=== PATIENT | male | born 1975 | race Caucasian/White ===

== ENCOUNTER 2019-07-19 08:50 | Day surgery (SDC) | payer OTHER ==
[~2019-07-19] VITALS: Ht 188 cm; Wt 88.5 kg
[~2019-07-19 08:50] MED LIST: CELEXA10 MG PO; COREG25 MG PO; LASIX 80 MG TAB80 MG PO; PHOSLO667 MG PO; PROCARDIA XL90 MG PO; PROGRAF1 MG PO; ZAROXOLYN 5MG TA5 MG PO
[2019-07-19 09:51] LABS: HEMATOCRIT 30.3 % (42.0-52.0); HEMOGLOBIN 10.1 gm/dL (14.0-18.0); MCH 32.9 pg (26.0-34.0); MCHC 33.4 g/dL (28.0-37.0); MCV 98.5 fL (80.0-100.0); RBC 3.07 mil/uL (4.50-6.00); RDW 14.1 % (10.5-14.5); WBC 8.5 thou/uL (4.0-11.0)
[2019-07-19 09:53] VITALS: BP 153/80
[2019-07-19 09:57] LABS: CALCIUM 9.3 mg/dL (8.5-10.1); POTASSIUM 4.8 mmol/L (3.5-5.1)
[2019-07-19 10:04] LABS: ALBUMIN 3.5 g/dL (3.4-5.0); DIRECT BILIRUBIN 0.1 mg/dL (<0.1-0.3); TOTAL BILIRUBIN 0.4 mg/dL (<0.1-1.0); TOTAL PROTEIN 6.6 g/dL (6.4-8.2)
--- NOTE | 2019-07-19 17:05 | EKG ---
[address] [address] ELECTROCARDIOGRAM REPORT Name: JHONNY KOCH Room #: 150-4 [facility]#: [id number] Admission: 07/19/19 Attend Phys: Lobo Milian MD Discharge: Date of : 71 Report #: [id number] THIS REPORT FOR: //name// [facility] Test Date: 2019-07-19 Test Time: 09:33:03 Pat Name: JHONNY KOCH Department: Room: Gender: M Mobile Equipment Operator: liyah : 1975 Requested By: Lobo Milian Order Number: [id number] MD: Rolo Rosario Measurements Intervals [place] Rate: 74 P: 65 WI: 152 QRS: 41 QRSD: 91 T: 32 QT: 374 QTc: 415 Interpretive Statements Sinus rhythm Normal tracing No previous ECG available for comparison Electronically Signed On 07-19-2019 17:05:13 CDT by Rolo Rosario [email or web address] <ELECTRONICALLY SIGNED> By: Rolo Rosario MD, [facility] 07/19/19 1705 0933 2 Rolo Rosario MD, FACC /EPI
[2019-07-19 18:42] VITALS: BP 143/84
--- NOTE | 2019-07-19 19:32 | NUR ---
43 YO MALE TRANSFERED TO 426 FROM PACU. A&OX4, IV INTACT IN L HAND. FISTULA TO R ARM. O2 AT 2 L PER NC. LIZZIE ARE INTACT ON R SIDE OF HEAD WITH YING DRAIN. TOP OF HEAD HAS DRIED BLOOD FROM LIZZIE OPEN TO AIR. R SIDE EYE LID IS ACTIVELY BLEEDING, IT WAS GENTLY TOUCHED TO STOP BLOOD ENTERING THE EYE. PT WAS EATING DINNER AFTER ARRIVED IN ROOM 1810. S/O AT THE BEDSIDE.
[2019-07-19 20:18] VITALS: BP 135/83
--- NOTE | 2019-07-20 00:56 | NUR ---
ASSESSMENT COMPLETED.PT'S INCISION IN HIS R LID DRAINING BLOOD,WIPE OFF WITH GAUZE,STERI STRIPS INTACT.ABX OINTMENT APPLIED TO BRYCE EYELIDS. R UPPER ARM FISTULA POSITIVE FOR THRILL AND BRUIT.PT DENIED PAIN SO FAR.PT ON O2 AT 2L/NC.SCD'S ON HIS BRYCE LOWER EXT.IV ABX AND IVF INFUSING.SIG OTHER AT BEDSIDE.CALL LIGHT WITHIN REACH.
[2019-07-20 03:30] VITALS: BP 151/93
[2019-07-20 05:33] LABS: HEMATOCRIT 25.2 % (42.0-52.0); HEMOGLOBIN 8.3 gm/dL (14.0-18.0); MCH 32.9 pg (26.0-34.0); MCV 99.8 fL (80.0-100.0); RBC 2.52 mil/uL (4.50-6.00); RDW 14.3 % (10.5-14.5); WBC 7.6 thou/uL (4.0-11.0)
[2019-07-20 05:38] LABS: CALCIUM 9.1 mg/dL (8.5-10.1); POTASSIUM 5.1 mmol/L (3.5-5.1)
[2019-07-20 07:30] VITALS: BP 169/89
[2019-07-20] MEDS ORDERED: PROMS25 WY RECTAL (11:45)
--- NOTE | 2019-07-20 11:45 | O ---
[facility] [place] [address] [place] [address] OPERATIVE REPORT Name: JHONNY KOCH Room #: 426-P [facility]..#: [id number] Admission: 07/19/19 Attend Phys: Lobo Milian MD Discharge: Date of : 71 Report #: [id number] THIS REPORT FOR: //name// CC: GARRETT Milian Physician staff DATE OF SERVICE: 07/19/2019 SURGEON: Dr. Lobo Milian. MANAGER MECHANICAL MAINTENANCE: Dr. Arthur Valdez. ANESTHESIA: General endotracheal. Note, Dr. Valdez will dictate his portion as primary surgeon as a separate dictation. PREOPERTIVE DIAGNOSIS: 1. Aggresive squamous cell carcinoma right forehead, brow, and orbit, 6cm. 2. Lesion right postauricular neck 2.5cm, rule out squamous cell carcinoma. 3. N0 Neck 4. Chronic immunosuppresion 5. Chronic kidney disease on dialysis. POSTOPERATIVE DIAGNOSIS: KELVIN PROCEDURES: 1. Radical excision squamous cell carcinoma right brow, forehead, orbit, 6cm. 2. Wide local excision, 3 cm lesion, right neck. 3. Myofacial cervicofacial flap reconstruction right forehead. 4. Sentinal node biosy right parotid. 5. Flap advancement reconstruction right neck. INDICATIONS: The patient is an unfortunate 43-year-old male presenting with a squamous cell carcinoma of the right lateral brow and forehead. He first had presented with a nonhealing ulceration in the right forehead in 09/2018. At that time, he felt this was secondary to sandblasting and foreign body. The patient had undergone a herniorrhaphy and by General Surgery in February. The wound was debrided at that time, but not biopsied. The patient developed swelling in April and saw a plastic surgeon in [place], [place]. Again, with the complaint of foreign body, debridement and biopsy was done showing squamous cell carcinoma. The patient ultimately was referred to Dr. Zacarias and then ultimately [address] [address] OPERATIVE REPORT Name: JHONNY KOCH Room #: 426-P [facility].#: [id number] Admission: 07/19/19 Attend Phys: Lobo Milian MD Discharge: Date of : 71 Report #: [id number] to me for definitive treatment. I had asked him to see Dr. Arthur Valdez, and oculoplastic surgeon, for assistance on this case. By then, the mass had grown and was fluid filled. Aspiration of 12 mL of sanguinous fluid was done in my office on 07/17 with positive for squamous cell carcinoma. Recommendations were made for radical excision of this mass, orbitotomy as necessary, possible orbital exenteration and cervical facial myofascial flap reconstruction. DESCRIPTION OF PROCEDURE: The patient was brought to the operating room and placed supine on the operating table. After adequate general anesthesia was achieved via endotracheal intubation, he was turned 180 degrees on a Camejo headrest with the face up. As a separate part of the procedure, the Xomed nerve integrity monitor was applied to the right face for continuous intraoperative monitoring of the facial nerve. Needle electrodes were placed in the orbicularis dc and orbicularis oculi muscles with ground electrodes in the soft tissue overlying the sternum and contralateral shoulder. Electrode resistance and impedance was measured and found to be acceptable. Threshold and stimulus intensity parameters were set and the patient was monitored for the entirety of the case of about 4 hours in order to locate and protect the facial nerve. He was then prepped and draped in a sterile fashion. The procedure began with excision of the tumor. Dr. Valdez began the procedure with excision of the upper lid margin extending down to the lateral canthus and then up to the lateral brow. The patient had a great deal of oozing going on throughout the case, even though he denies any anticoagulation for his dialysis. Once this was demarcated, I began the excision superiorly beginning on the superior brow extending down through the subcutaneous tissue and orbicularis oculi muscle. This continued laterally, 3 mm margins were taken around the gross erythema of the tumor, which was now a large swollen cystic mass. The dissection then continued down using Harmonic scalpel. The portion of the orbicularis oculi muscle was taken with the specimen. Dissection continued down to the periosteum of the upper brow. Interestingly, this mass seemed confined to the soft tissue and did not seem to invade into the pericranium. Lateral margins appeared clear grossly. The tumor was marked with a silk suture at 12 o'clock and then delivered off the field as specimen. Separate margins were taken on the patient in a clockwise fashion beginning 12-3 o'clock, 3-6 o'clock, etc., back to 12 o'clock of 1-2 mm margins off the patient himself. The deep margin was taken overlying the deep part of the tumor overlying the lateral supraorbital ridge. The supraorbital artery and vein were identified during the dissection, clamped between Ligaclips and divided. The deep margin and lateral margins all returned free of tumor. The patient had exposure of his lateral orbit and in beginnings of an orbitotomy there was no evidence of any extension deep into the lateral orbit. This did not involve the lateral canthal region or [facility] [address] [place] [address] OPERATIVE REPORT Name: JHONNY KOCH Room #: 426-P [facility]#: [id number] Admission: 07/19/19 Attend Phys: Lobo Milian MD Discharge: Date of : 71 Report #: [id number] tendon. Once this excision completed, attention was then turned to reconstruction while waiting for the margins. It was elected to proceed with a myofascial cervical facial rotation flap extending superiorly over the forehead into the hair and extending down along the anterior or along the preauricular sulcus then extending posteriorly into the lateral neck. The posterior limb of the incision in the lateral neck was made to include another lesion in the neck. This lesion was then excised as a fusiform excision taking again 3 mm margins around the gross tumor and dissected down to the subcutaneous tissue, this was again worked with a silk suture superiorly at 12 o'clock delivered off the field as specimen. Wide undermining was then undertaken. A cervicofacial flap was then elevated in a facelift fashion up to the masseter muscle and extending inferiorly in the neck deeply, so this entire flap could be rotated superiorly. Dissection then continued in the superior limb up into the forehead and calvaria and then anteriorly almost to the midline of the forehead. This was then freed from its soft tissue attachments and the flap rotated into the defect. This was able to completely reconstruct the orbital defect with little tension. This did deliver hair-bearing skin up to the forehead. Once this entire flap was rotated, this was sutured in place with a 4-0 Dr. José Miguel baron then reconstructed the upper lid with this flap. This was inset with 4-0 Vicryl and 5-0 nylon on skin. While this was being done, attention was then turned to the sentinel node biopsy. The patient had been preoperatively injected with radiotracer. The gamma probe was used to identify this as a node inferior in the parotid just anterior to the sternocleidomastoid anterior border. Dissection was then made in this fashion. This area was entered. Dissection was made through the parotid until the retromandibular vein was identified just lateral and posterior to this vein was a 1-cm lymph node. This was dissected free. A 10-second count in vivo was 456, ex vivo count on the node was 903 and in the bed after removal, the 10-second count was 16 indicating complete removal of the sentinel node. Hemostasis was assured with bipolar cautery. The parotid was then closed with 3-0 Vicryl. At this point, the postauricular fusiform excision that had been made for removal of the tumor in the postauricular region was then closed advancing this flap superiorly and then closing this with interrupted 4-0 Vicryl deep dermal sutures and 35 wide gisela on skin. The cervicofacial flap had been rotated superiorly and then this area was closed in the preauricular sulcus with interrupted 4-0 Vicryl on deep dermal sutures and then 5-0 nylon on skin. Prior to closure, a 10-[place] Vishnu drain was placed through a separate stab incision, curled into the wound and connected to bulb suction. The drain was sutured in place with 2-0 silk. By then, all margins had been confirmed cleared. The lesion in the neck was a squamous cell carcinoma as well. Final pathology deferred to permanent section. Dr. Valdez continued to work on the right upper lid and elected to reconstruct [address] [address] OPERATIVE REPORT Name: JHONNY KOCH Room #: 426-P [facility] M.R.#: [id number] Admission: 07/19/19 Attend Phys: Lobo Milian MD Discharge: Date of : 71 Report #: [id number] with a full thickness skin graft, which was taken from the opposite upper lid skin. This will be dictated as a separate dictation. The primary surgeon on the above was Dr. Milian. Dr. Valdez assisted in all phases of this and was enrolled to helping inset the flap into the upper lid. Once this was closed, the patient was returned to anesthesia, awakened without difficulty and returned to recovery in good condition. Sponge and needle counts were correct. There were no complications. Final defect measured about 14 x 12 cm in the forehead with reconstruction of this large flap. The patient will be kept overnight for monitoring. He is due to dialyze tomorrow and Nephrology will be consulted. I would ask them to avoid any anticoagulation with dialysis. The patient will be discharged to home once he is doing well and awake and stable with plans to follow with me in 1 week. Written and verbal discharge instructions and emergency precautions have been given to his . DISCHARGE MEDICATIONS: Include clindamycin 300 mg 1 t.i.d. for 10 days, Phenergan suppository 25 mg one q. 4-6 hours p.r.n., hydrocodone/acetaminophen 7.5/325 one to two q. 4-6 hours p.r.n. He is instructed on light activity and a soft diet and instructed on wound precautions. <ELECTRONICALLY SIGNED> By: Lobo Milian MD 07/20/19 1145 170 37 Lobo Milian MD /nt
[2019-07-20] MEDS ORDERED: NORCO 7.5-3251 EACH PO (11:46)
--- NOTE | 2019-07-20 14:14 | NUR ---
PT ADMITTED RELATED TO RT EXC LESION EYE. CM REVIEWED CHART AND SPOKE WITH CARE TEAM. CM MET WITH PT AT BEDSIDE THIS DAY. PT IS A&O X4. CM ROLE INTRODCUED. PT INDICATED HE LIVES IN A HOUSE WITH HIS SIG OTHER WITH NO STEPS. PT INDICATED HE HAD BEEN INDEPDENET WITH GAIT AND ADLS PASTE THINNER PT INDICATED NO DME OR HH HISTORY. PT INDICATED HE GOES FOR DIALYSIS AT [facility] IN [facility]. HE WILL NEED DIALYSIS TUESDAY. CARE TEAM INDICATED WITH PT DC HOME TOMRROW. NO OTHER CM INTERVENTION INDICATED.
[2019-07-20 16:10] VITALS: BP 144/73
--- NOTE | 2019-07-20 18:30 | NUR ---
PT ASSESSED AT START OF SHIFT. PT RT EYELID SKIN GRAFT SWOLLEN W/ SOME SS DRAINAGE. GAUZE PLACED UNDER EYE TO ABSORB DRAINAGE. EYE OINTMENT TO BRYCE EYES TO KEEP SURGICAL SITES MOIST. TEACHING DONE W/ SIG OTHER. RT NECK YING W/ SS DRAINAGE. PT DIALYZED THIS AM AND TOLERATED WELL. PLAN FOR DISCHARGE TOMORROW.
[2019-07-20 20:11] VITALS: BP 156/85
[2019-07-20 23:06] LABS: HEPATITIS B SURFACE AG Negative (Negative)
--- NOTE | 2019-07-21 00:50 | NUR ---
ASSESSMENT COMPLETED.PT'S EYELID WITH MIN BLOODY DRAINAGE.EYE OINTMENT APPLIED ORDERED.YING DRAIN INTACT WITH MIN SEROSANGUINEOUS DRAINAGE NOTED.PT UP ADLIB IN ROOM,SIG OTHER AT BEDSIDE.DIALYSIS FISTULA POSITIVE FOR THRILL AND BRUIT.PT RESTING ON HIS BED AT THIS TIME.CALL LIGHT WITHIN REACH.
[2019-07-21 07:28] VITALS: BP 183/91
[2019-07-21 10:45] VITALS: BP 183/91
--- NOTE | 2019-07-21 11:23 | NUR ---
Assumed care of pt at 0700. Pt a&ox4. Incision clean and intact. Denies pain. Incision cleaned and antibiotic applied. Pt discharging home.
--- NOTE | 2019-07-23 06:16 | O ---
[facility] [place] [address] [place] [address] OPERATIVE REPORT Name: JHONNY KOCH Room #: DEP [facility] M..#: [id number] Admission: 07/19/19 Attend Phys: Arleen Milian MD Discharge: 07/21/19 Date of : 71 Report #: [id number] THIS REPORT FOR: //name// CC: GARRETT Mejia M.D., Dr. ____ ARLEEN Milian Physician staff DATE OF SERVICE: 07/19/2019 PREOPERATIVE DIAGNOSIS: Squamous cell carcinoma of the right upper lid, brow, forehead, temporal fossa, and orbit. POSTOPERATIVE DIAGNOSIS: Squamous cell carcinoma of the right upper lid, brow, forehead, temporal fossa, and orbit. PROCEDURES: 1. Right transfrontal orbitotomy. 2. Excision of lesion of right upper lid and brow with myocutaneous flap repair of defect. 3. Full-thickness skin graft from left upper lid to right upper lid. SURGEON: Arthur Valdez MD PLATE EMBOSSER: Arleen Milian MD ANESTHESIA: General. COMPLICATIONS: None. ESTIMATED BLOOD LOSS: [address] Milian has a separate dictation on his own. INDICATIONS FOR SURGERY: This pleasant 43-year-old gentleman has a rapidly enlarging lesion that appeared to have been originally based somewhere in the tail of his right brow extending into his temporal fossa that has shown rapid and progressive enlargement along with secondary inflammation extending into the right upper lid now and radiographically into the right orbit temporally. He presents today for excision of this large lesion with frozen sections and subsequent repair of what is anticipated to be a very large defect. Informed consent was obtained to include but not limited to the potential risk for loss of vision, bleeding, infection, failure to improve the problem, the potential need for removal of the eye along with almost certain need for postoperative [facility] [address] [place] [address] OPERATIVE REPORT Name: KOCHYUMIKOJHONNY Room #: DEP [facility]#: [id number] Admission: 07/19/19 Attend Phys: Arleen Milian MD Discharge: 07/21/19 Date of : 71 Report #: [id number] external beam radiation. Two surgeons are being used for the case in order to expedite the procedure and also to reduce the risk for his morbidity to be associated with surgery. DESCRIPTION OF PROCEDURE: The patient was taken to the operating room where general anesthesia was undertaken. A laryngeal mask airway was used. Monitoring was placed for the facial nerve by Dr. Milian. The right orbit was then injected superficially around the lesion 360 degrees with Xylocaine with 1:100,000 epinephrine utilizing a 1% mixture. A fine-tip skin marking pen was then utilized to outline the lesion including approximately 3-5 mm of peripheral relatively uninvolved skin. The inflammation from the tumor itself was quite difficult to separate from the underlying lesion itself. The incisions were then made in a methodical fashion extending 360 degrees around the lesion. He did not clot well, which necessitated stopping even the initial incision multiple times in order to obtain hemostasis sufficient in caliber to be able to extend just the initial incision. In the area of his prior biopsy superiorly, that site was entirely excised with a margin of approximately 1 cm. The dissection medially was taken down on to the periosteum and then down into the orbit superocentrally. The supratrochlear neurovascular bundle was identified and the artery occluded with a Hemoclip. The supratrochlear artery was similarly identified and occluded with a Hemoclip as well. The dissection was then carried out more laterally back through the lateral canthus staying deep in the periosteum and then relatively shallow anteriorly in the orbit across the wound. I did most of the dissection medially where Dr. Milian did most of the dissection laterally around the facial nerve and the superficial temporal vasculature. The specimen was then oriented for the pathologist with a silk suture at 12 o'clock. An additional margin was then taken of the skin, not the orbit, 360 degrees. It was referred out in four different sections based on clock hours. An additional tissue specimen was taken on the rim of the periosteum of the orbit. The pathologist snap froze all of those tissues and found that the margins she felt were clear. The defect at this point in time, while difficult to measure, appeared to be over [address] Milian then proceeded to do a sentinel lymph node biopsy while I worked to correct the defect in the upper eyelid. A myocutaneous flap was developed laterally with relaxing incision, once again paying close attention to hemostasis, which was challenging. That flap was advanced and secured with multiple interrupted deep 4-0 Vicryl sutures across the width of the incision and then a more superficial closure of a running 5-0 nylon suture. Approximately 50% of the defect of the upper lid, which included all of the brow, was able to be corrected with that flap. This left a defect in the upper eyelid that was approximately 12.5 cm in height [address] [address] OPERATIVE REPORT Name: JHONNY KOCH [id number] Admission: 07/19/19 Attend Phys: Arleen Milian MD Discharge: 07/21/19 Date of : 71 Report #: [id number] and 14 cm in width. A decision was made to take a full-thickness skin graft from the left upper lid to correct this defect. The left upper lid crease was then outlined with a fine-tip skin marking pen. A Graefe forceps was then used to quantitate the redundant upper lid skin that could be easily removed and still allow the patient a good closure. The incisions were then made with a Keshia scissor and a high-temp cautery was then used to remove a thin section full-thickness skin graft. It was placed on a moistened sponge on the back table. The field was dried with pinpoint monopolar cautery and the soft tissue and the upper lid sculpted. The upper lid crease was then reformed with several 6-0 chromic sutures. The skin was then closed with a 6-0 plain gut suture. The full-thickness skin graft was then defatted and it was reposited in its defect in the host bed with cardinal bites of 7-0 Vicryl suture and then 6-0 plain gut sutures. It was hemisected in order to correct the entire defect and none of it was discarded. At this point in time, I assisted Dr. Mliian in closing the cervicofacial flap. Interrupted buried 4-0 Vicryl sutures were used in a counterclockwise fashion working around the superior aspect of the wound to the tip of the ear. Dr. Milian met me at that point with sutures that he placed utilizing the same caliber suture in the same technique. The skin in the area of the scalp was closed with gisela. The tissue that extended down on the forehead was closed with running 5-0 nylon suture. There was an incision superotemporally that had a bit of a dog ear, but the dog ear was not excised because of the vasculature that brought the blood supply into the cervicofacial flap came in through this area. That lateral incision was also closed with 5-0 nylon sutures. The wounds were cleaned and dressed with erythromycin ointment throughout. Steri-Strips were placed over the portion of the wound that was on the forehead and the scalp. The patient was subsequently transported to the recovery area having tolerated the procedures well with a surgery that was approximately 5 hours in length. No further dictations to follow. <ELECTRONICALLY SIGNED> By: Arthur Valdez MD 07/23/19 0616 1655 23 Arthur Valdez MD /nt
--- NOTE | 2019-07-25 07:49 | HC ---
[facility] [place] [address] [place] [address] CONSULTATION Name: JHONNY KOCH Room #: DEP [facility] [place]..#: [id number] Admission: 07/19/19 Attend Phys: Lobo Milian MD Discharge: 07/21/19 Date of : 71 Report #: [id number] THIS REPORT FOR: //name// CC: GARRETT Milian Physician staff DATE OF SERVICE: 07/20/2019 REASON FOR CONSULTATION: End-stage renal disease. REASON FOR PRESENTATION: Squamous cell carcinoma post-extensive surgery. HISTORY OF PRESENT ILLNESS: A 43-year-old who has been on dialysis for the last few years. His end-stage renal disease is attributed to polycystic kidney disease. The patient has a kidney transplant in 2013 and this has failed. The patient is not sure about the cause of the failure of his graft. He has an expanding and rapidly progressive lesion on his right brow and forehead consistent with squamous cell carcinoma. He was admitted yesterday and had a radical excision of the squamous cell carcinoma with myofascial cervicofacial rotational flap reconstruction of his right forehead. He also had right orbitotomy. I am consulted to manage his end-stage renal disease. He dialyzes in [facility] in [facility]. He has been on dialysis since 2014 since his kidney failed. He is maintained on chronic immunosuppressive medications. He is due to have his dialysis today. PAST MEDICAL HISTORY: 1. Hypertension. 2. Polycystic kidney disease. 3. Status post renal transplantation with failed graft. 4. Right AV fistula. 5. Recent surgery as described above. FAMILY HISTORY: Father has polycystic kidney disease. ALLERGIES: None. MEDICATIONS: 1. Carvedilol. 2. Metolazone. 3. Tacrolimus. 4. Nifedipine. 5. Calcium acetate. 6. Lasix. REVIEW OF SYSTEMS: [facility] [address] [place] [address] CONSULTATION Name: JHONNY KOCH [id number] Admission: 07/19/19 Attend Phys: Lobo Milian MD Discharge: 07/21/19 Date of : 71 Report #: [id number] GENERAL: No fever or chills. CARDIOVASCULAR: No chest pain or palpitation. PULMONARY: No cough or hemoptysis. GASTROINTESTINAL: No nausea or vomiting. SKIN: As per the history of present illness. NEUROLOGICAL: No headache, no dizziness. PHYSICAL EXAMINATION: GENERAL: He is alert, oriented. VITAL SIGNS: Blood pressure is 151/93, temperature is 36.2. HEAD AND NECK: Extensive surgical scar from his recent surgeries as described above. Drain is in place. CHEST: No crackles. CARDIOVASCULAR: No rub detected. Systolic murmur is present. ABDOMEN: Soft, nontender. LOWER EXTREMITIES: No edema. UPPER EXTREMITIES: Beautiful right upper extremity AV fistula with tortuous dilatation. ASSESSMENT, IMPRESSION AND PLAN: 1. End-stage renal disease due to polycystic kidney disease. 2. Failed kidney transplant. 3. Squamous cell carcinoma. 4. Status post radical excision of squamous cell carcinoma with myofascial cervicofacial rotation flap, status post orbitotomy. 5. We will arrange for the patient to have his hemodialysis today. Routine post-surgical care. I will completely discontinue his tacrolimus given the aggressive nature of his squamous cell carcinoma. <ELECTRONICALLY SIGNED> By: Daniel Patel MD 07/25/19 0749 0729 [id number] Daniel Patel MD /nt
--- NOTE | 2019-07-31 15:07 | PATH ---
[facility] [place] [address] PATHOLOGY RPT PROCEDURE Name: MANUEL KOCH Room #: DEP [facility]..#: [id number] Admission: 07/19/19 Date of : 71 Discharge: 07/21/19 Report #: [id number] Path Case #: [id number] [facility] Accession Number: [id number] . 01 Material submitted: . PART A: orbit - RIGHT ORBIT SQUAMOUS CELL CARCINOMA SUTURE AT 12. Modifiers: right PART B: orbit - DEEP MARGIN ORBITAL RIM - FS PART C: orbit - 12-3 RIGHT SUPERIOR MARGIN - FS. Modifiers: right, superior PART D: orbit - 3-6 RIGHT SUPERIOR MARGIN - FS. Modifiers: right, superior PART E: orbit - 6-9 RIGHT SUPERIOR MARGIN - FS. Modifiers: right, superior PART F: orbit - 9-12 RIGHT SUPERIOR MARGIN - FS. Modifiers: right, superior PART G: face - RIGHT POSTERIOR AURICULAR LESION R/O SQUAMOUS CELL CARCINOMA - FS. Modifiers: right, posterior PART H: lymph node - RIGHT PAROTID SENTINEL LYMPH NODE. Modifiers: right, parotid . 01 Clinical history: . Cancer of orbit, right; cysts of eye, eyelids; disorder of the skin and subcutaneous tissue; squamous cell carcinoma, status post renal transplant. . 02 Frozen section diagnosis: . INTRAOPERATIVE CONSULTATION WITH FROZEN SECTION: (Dr. Balbina Garza) . FSB1. Deep margin orbital rim, biopsy: - No definite invasive carcinoma on FS slide. . FSC1. Right superior margin, 12-3:00, biopsy: - No definite invasive carcinoma on FS slide. . FSD1. Right superior margin, 3-6:00, biopsy: - No definite invasive carcinoma on FS slide. . FSE1. Right superior margin, 6-9:00, biopsy: - No definite invasive carcinoma on FS slide. . FSF1. Right superior margin, 9-12:00, biopsy: - No definite invasive carcinoma on FS slide. . FSG1 and FSG2. Right posterior auricular lesion, excision: - Squamoproliferative lesion; margins and deep margin closest to the lesion free of invasive carcinoma. . These findings are discussed with Drs. Arthur Shipman and Lobo Milian in OR6 at [facility] and the written report is placed in the patient's chart. (IUV:mml; 07/19/2019) [address] [address] PATHOLOGY RPT PROCEDURE Name: MANUEL KOCH Room #: DEP [facility].#: [id number] Admission: 07/19/19 Date of : 71 Discharge: 07/21/19 Report #: [id number] Path Case #: [id number] . . . FROZEN SECTION GROSS DESCRIPTION: B. Specimen received fresh from OR labeled, "Manuel Koch - Deep margin orbital rim" is a pink soft tissue fragment measuring approximately 0.2 x 0.1 x 0.1 cm. Submitted in entirety for frozen section in FSB1, subsequently submitted for permanent section as B1. . C. Specimen received fresh from OR labeled, "Manuel Koch - Right superior margin, 12-3:00" is a 4.5 strip of skin oriented as 12:00 and 3:00. The 12:00 end of specimen is inked black, and the 3:00 end of the specimen is inked blue. At this point, the specimen is sectioned into three pieces and submitted for frozen section entirely as FSC1, subsequently submitted for permanent section as C1. . D. Specimen received fresh from OR labeled, "Manuel Koch - Right superior margin, 3-6:00" is a thin strip of skin measuring 7.0 x 0.1 x 0.1 cm. The 3:00 half of the specimen is inked blue and the 6:00 half of the specimen is inked red. At this point, the specimen is serially sectioned into three pieces and submitted entirely for frozen section as FSD1, subsequently submitted for permanent section as D1. . E. Specimen received fresh from OR labeled, "Manuel Koch - Right superior margin, 6-9:00" is a 5.5 cm strip of skin oriented as 6:00 and 9:00. The 6:00 half of the specimen is inked red and the 9:00 half of the specimen is inked green. At this point, the specimen is serially sectioned and submitted entirely for frozen section as FSE1, subsequently submitted for permanent section as E1. . F. Specimen received fresh from OR labeled, "Manuel Koch - Right superior margin, 9-12:00" is a 4.0 cm strip of skin oriented as 9:00 to 12:00. The 9:00 half of the specimen is inked green and the 12:00 half of the specimen is inked black. At this point, the specimen is serially sectioned and submitted entirely for frozen section as FSF1, subsequently submitted for permanent section as F1. . G. Specimen received fresh from OR labeled, "Manuel Koch - Right posterior auricular lesion rule out squamous cell carcinoma suture at superior" is an ellipse of skin with a suture. The skin is 7.5 x 2.0 x 2.0 cm in greatest dimension. The suture is assigned 9:00. At this point, the 12-3:00 including the deep margin is inked black, the 3-6:00 is inked red, the 6-9:00 is inked blue, and the 9-12:00 is inked green (including the respective deep margins). At this point, the specimen is serially sectioned and the lesion grossly noted (raised nodule-like lesion measuring approximately 1.0 cm in the center of the specimen. Submitted for frozen section as FSG1 and FSG2. These are subsequently submitted for permanent sections as G1 and G2, respectively. The unfrozen portion of [address] [address] PATHOLOGY RPT PROCEDURE Name: MANUEL KOCH Room #: DEP [facility].#: [id number] Admission: 07/19/19 Date of : 71 Discharge: 07/21/19 Report #: [id number] Path Case #: [id number] the specimen is submitted in G3-G5 with the tips submitted in G5. (IUV:mml; 07/19/2019) . . Frozen section performed at [facility], [address] [place] [address] , [place] [address]. IZV/QLM . 03 Amended report: . This is an amended report because an incorrect source was provided by the client. There is a change in the diagnosis. Client requested part type change of part H from left to right. . 02 Diagnosis: AMENDED REPORT: 07/31/2019 REASON FOR AMENDMENT: Incorrect part type submitted. Client requested part type change of part H from left to right. Remainded or diagnoses remain unchanged. . . CORRECTED: H. Lymph nodes (2), right parotid sentinel lymph nodes, biopsy: - Reactive lymph nodes; negative for malignancy. - Negative for metastatic carcinoma on properly controlled AE1/AE3 immunohistochemical stain (0/2). . . ORIGNALLY REPORTED : A. Skin, right orbit/forehead squamous cell carcinoma, excision and full thickness skin graft: - INVASIVE MODERATELY DIFFERENTIATED SQUAMOUS CELL CARCINOMA MEASURING 4.2 CM IN GREATEST DIMENSION AND 2.8 CM DEPTH OF THICKNESS (PLEASE SEE COMMENT). - No definite perineural invasion identified, see comment. - Negative for lymphovascular space invasion. - Seven to ten mitoses per mm2. - Deep margin free of malignancy. . B. Soft tissue, deep margin orbital rim, biopsy: - Negative for malignancy. - Fibrovascular connective tissue with congestion and mild chronic inflammation. . C. Skin, right superior margin 3:00, excision: - Actinic keratosis as well as elastosis. - Negative for malignancy. . [address] [address] PATHOLOGY RPT PROCEDURE Name: MANUEL KOCH Room #: [place] [facility] [place].#: [id number] Admission: 07/19/19 Date of : 71 Discharge: 07/21/19 Report #: [id number] Path Case #: [id number] D. Skin, 3 to 6:00 right superior margin, excision: - Moderate chronic inflammation along with actinic keratosis as well as solar elastosis. - Negative for malignancy. . E. Skin, 6 to 9:00 right superior margin, biopsy: - Focal ulceration. - Actinic keratosis as well as elastosis. - Negative for malignancy. . F. Skin, 9 to 12:00, right superior margin, biopsy: - Actinic keratosis as well as elastosis. - Negative for malignancy. . G. Skin, right post auricular lesion, excision: - INVASIVE MODERATELY DIFFERENTIATED SQUAMOUS CELL CARCINOMA. - Margins of resection free of malignancy. - One reactive lymph node identified within subcutaneous tissue; negative for malignancy. . H. Lymph nodes (2), left parotid sentinel lymph nodes, biopsy: - Reactive lymph nodes; negative for malignancy. - Negative for metastatic carcinoma on properly controlled AE1/AE3 immunohistochemical stain (0/2). LBQ 07/31/2019 1410 Local Previously Reported As: A. Skin, right orbit/forehead squamous cell carcinoma, excision and full thickness skin graft: - INVASIVE MODERATELY DIFFERENTIATED SQUAMOUS CELL CARCINOMA MEASURING 4.2 CM IN GREATEST DIMENSION AND 2.8 CM DEPTH OF THICKNESS (PLEASE SEE COMMENT). - No definite perineural invasion identified, see comment. - Negative for lymphovascular space invasion. - Seven to ten mitoses per mm2. - Deep margin free of malignancy. B. Soft tissue, deep margin orbital rim, biopsy: - Negative for malignancy. - Fibrovascular connective tissue with congestion and mild chronic inflammation. C. Skin, right superior margin 3:00, excision: - Actinic keratosis as well as elastosis. - Negative for malignancy. D. Skin, 3 to 6:00 right superior margin, excision: - Moderate chronic inflammation along with actinic keratosis as well as [facility] [address] [place] [address] PATHOLOGY RPT PROCEDURE Name: MANUEL KOCH Room #: DEP [facility]#: [id number] Admission: 07/19/19 Date of : 71 Discharge: 07/21/19 Report #: [id number] Path Case #: [id number] solar elastosis. - Negative for malignancy. E. Skin, 6 to 9:00 right superior margin, biopsy: - Focal ulceration. - Actinic keratosis as well as elastosis. - Negative for malignancy. F. Skin, 9 to 12:00, right superior margin, biopsy: - Actinic keratosis as well as elastosis. - Negative for malignancy. G. Skin, right post auricular lesion, excision: - INVASIVE MODERATELY DIFFERENTIATED SQUAMOUS CELL CARCINOMA. - Margins of resection free of malignancy. - One reactive lymph node identified within subcutaneous tissue; negative for malignancy. H. Lymph nodes (2), left parotid sentinel lymph nodes, biopsy: - Reactive lymph nodes; negative for malignancy. - Negative for metastatic carcinoma on properly controlled AE1/AE3 immunohistochemical stain (0/2). Signed out on: 07/24/19 . 02 Comment: Examination shows a tumor larger than 4.0 cm in greatest dimension, therefore suggestive of a pT3 pathologic stage tumor. No definite lymphatic or perineural invasion is identified.The latter confirmed on properly controlled S100 immunohistochemical stain performed on block A3. The margins of resection show no invasive carcinoma present. . A properly controlled AE1/AE3 immunohistochemical stain is performed on blocks H1 and H2. It is negative for metastatic carcinoma. (IUV/db; 07/23/2019) . 02 Electronically signed: . Balbina Garza MD, Pathologist NPI- [id number] . 01 Gross description: . A. The specimen is received in formalin, labeled "Manuel Koch, right orbit squamous cell carcinoma, suture at 12". Received is an oriented excision of skin measuring 5.4 x 4.5 x 3.8 cm in greatest dimensions with a suture placed along one edge designated this as the 12:00 margin. The surgical margins are inked as follows: 12 to 3:00-black, 3 to 6:00-blue, 6 to 9:00-red, and 9 to 12:00-green. The entire deep margin is inked according to the quadrant it is associated with. The epidermal surface displays a well-circumscribed, raised, partially flaky and inflamed to [facility] [address] [place] [address] PATHOLOGY RPT PROCEDURE Name: MANUEL KOCH Room #: DEP [facility]..#: [id number] Admission: 07/19/19 Date of : 71 Discharge: 07/21/19 Report #: [id number] Path Case #: [id number] pink-red measuring 4.2 x 3.8 x 2.6 cm. Sectioning through the lesion reveals a large cystic component filled with blood-tinged fluid, measuring up to 3.8 cm in maximum dimensions. There are solid components of the lesion, which are white and grossly approach the deep margins of the 6 to 9:00 and 9 to 12:00 aspects, as well as the 3 to 6:00 aspect. The specimen is submitted new accounts banking representative as follows: . A1 new accounts banking representative section of solid component of lesion to show relationship with deep aspect of 3 to 6:00 margin A2 new accounts banking representative section of solid component of lesion to show relationship with deep aspect of 6 to 9:00 margin A3 new accounts banking representative section of solid component of lesion to show relationship with deep aspect of 9 to 12:00 margin A4 new accounts banking representative sections of cystic aspect of lesion. ([facility]; 07/20/2019) . B-G. SEE FROZEN SECTION GROSS DESCRIPTION . H. The specimen is received in formalin, labeled "Manuel Koch, left parotid sentinel lymph nodes". Received are two segments of pink-[place] lobulated tissue measuring 0.6 x 0.5 x 0.3 and 1.5 x 0.8 x 0.5 cm in greatest dimensions. The smaller segment is submitted intact in cassette H1. The larger segment is bisected and entirely submitted in cassette H2. Immunohistochemical stains are ordered. ([facility]; 07/20/2019) [facility] 07/20/2019 1425 Local . 02 Pathologist provided ICD-10: C44.329, C44.222, L57.0, L08.9, L98.499, R59.9 . 02 CPT . 014031, 371965, 695858, 656211, 041614, 162066, 918424, 564689, 864493, 831325, 958205, 583433, 313955, 518801, 053809, U98608 Specimen Comment: A courtesy copy of this report has been sent to Specimen Comment: [phone], . Specimen Comment: Report sent to / DR SHIPMAN Performed at: [address], [place] [id number] MD Joni Vale MD Phone: [phone] Performed at: [address] [id number] MD Balbina Garza MD Phone: [phone] Performed at: [address], [place], [place] [id number] MD Joni Vale MD Phone: [phone]
== END 2019-07-21 11:25 | disposition home or self-care (01) ==
LOC: 4E 08:50 → OR 08:50 → TBA 10:12 → OR 16:51 → 4E 18:15 → OR 07-21 11:25
PROVIDERS: Hospitalist; Otolaryngology Plastic Surgery within the Head & Neck
DX: C44.1221 Squamous cell carcinoma of skin of right upper eyelid, including canthus (principal); C44.329 Squamous cell carcinoma of skin of other parts of face; C44.222 Squamous cell carcinoma of skin of right ear and external auricular canal; L57.0 Actinic keratosis; L08.9 Local infection of the skin and subcutaneous tissue, unspecified; L98.499 Non-pressure chronic ulcer of skin of other sites with unspecified severity; R59.9 Enlarged lymph nodes, unspecified; I12.0 Hypertensive chronic kidney disease with stage 5 chronic kidney disease or end stage renal disease; N18.6 End stage renal disease; F32.9 Major depressive disorder, single episode, unspecified; F17.210 Nicotine dependence, cigarettes, uncomplicated; Z98.890 Other specified postprocedural states; Z79.899 Other long term (current) drug therapy
CPT/HCPCS: 10783; 32100; 50010; 50101; 50331; 50386; 50417; 51412; 51636; 52190; 52220; 52225; 56524; 56525; 56526; 56531; 56760; 57006; 62110; 62900; 70005

== ENCOUNTER → 2020-10-21 | Outpatient (CLI) | payer OTHER ==
[~2020-10-21] MED LIST changes: +KEFLEX250 MG PO; +NORCO 7.5-3251 EACH PO; +PROMS25 WY RECTAL; +ZOFRAN ODT4 MG DISSOLVE
== END ==
LOC: LAB 09:31
PROVIDERS: ATTEND Otolaryngology Plastic Surgery within the Head & Neck
DX: Z01.812 Encounter for preprocedural laboratory examination (principal); Z20.828 Contact with and (suspected) exposure to other viral communicable diseases

== ENCOUNTER 2020-10-24 11:49 | Day surgery (SDC) | payer OTHER ==
[~2020-10-24] VITALS: Ht 185.4 cm; Wt 83.0 kg
--- NOTE | ~2020-10-24 | O ---
[facility] [place] [address] [place] [address] OPERATIVE REPORT Name: JHONNY KOCH Room #: 150-5 [facility]..#: [id number] Admission: 10/24/20 Attend Phys: Lobo Milian MD Discharge: Date of : 71 Report #: [id number] THIS REPORT FOR: cc: FAM - Family physician unknown FAM - Family physician unknown Lobo Milian MD ~ DATE OF SERVICE: 10/24/2020 SURGEON: Lobo Milian MD. PREOPERATIVE DIAGNOSES: 1. Squamous cell carcinoma, right cheek, 2 cm. 2. Squamous cell carcinoma, right posterior occipital scalp. 3. Basal cell carcinoma, right postauricular. POSTOPERATIVE DIAGNOSES: 1. Squamous cell carcinoma, right cheek, 2 cm. 2. Squamous cell carcinoma, right posterior occipital scalp. 3. Basal cell carcinoma, right postauricular. OPERATIONS PERFORMED: 1. Wide local excision squamous cell carcinoma, right cheek, 4 cm. 2. Myocutaneous rotation flap reconstruction, right cheek. 3. Wide local excision, basal cell carcinoma, right postauricular, 2.5 cm. 4. Complex multilayer closure with posterior flap advancement, right postauricular. 5. Wide local excision, right parietal scalp squamous cell carcinoma, 2.5 cm. 6. Complex multilayer closure, right postauricular, 5 cm. INDICATIONS FOR PROCEDURE: The patient is a 45-year-old male presenting with new lesions. The patient has been living in [place], [place]. He had biopsies by a computer processing scheduler there and was told these were squamous cell carcinoma. In fact, it looks like the cheek and scalp has squamous cell carcinoma, but the postauricular was basal cell carcinoma. We did not have a formal pathology report from [place], [place]. The patient subsequently returned to [place] for excision and reconstruction. 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 The patient underwent a right transfrontal orbitotomy, an excision of the lesion with the right upper lid and brow. We had myocutaneous flap repair of the defect, which was substantial. This was done by Dr. Valdez and myself 07/19/2019. In light of the above, recommendations were made for wide local excision with pathologic margin control and immediate reconstruction with flaps and grafts as needed. DESCRIPTION OF PROCEDURE: The patient was brought to the operating room and placed supine on the operating table. After adequate general anesthesia was [facility] [address] [place] [address] OPERATIVE REPORT Name: JHONNY KOCH Room #: 150-5 [facility] M.R.#: [id number] Admission: 10/24/20 Attend Phys: Lobo Milian MD Discharge: Date of : 71 Report #: [id number] achieved via endotracheal intubation, he was turned 180 degrees with the right face up. The 3 lesions had been marked preoperatively. As a separate part of the procedure, the X[employer] nerve integrity monitor was applied to the right face for continuous intraoperative monitoring of the facial nerve. Needle electrodes were placed in the orbicularis iris and orbicularis oculi muscles with ground electrodes in the soft tissue overlying the sternum and contralateral shoulder. Electrode resistance and impedance was measured and found to be acceptable. Stimulus and threshold intensity parameters were set and the patient was monitored for the entirety of the case of approximately 2 hours in order to locate and protect the facial nerve. The procedure began with the right cheek. The lesion was marked out with about a 4 cm defect, taking 8 mm margins around the gross tumor. This was widely undermined to the underlying superficial musculoaponeurotic system (SMAS). The superior margin at 12 o'clock was oriented with a 2-0 silk suture. This was delivered off the field as specimen to pathology. This returned squamous cell carcinoma margins widely clear including deep margin. Attention was then turned to the right postauricular lesion. This was an irregular ugly looking lesion with ulceration and some bleeding with crusting overlying. Again 8 mm margins were taken around this. This was widely excised and then a second deep margin was taken in suspicion for basal cell carcinoma. These margins all returned clear. Attention was then turned to the third lesion in the right parietal scalp. An excision of about 2.5 cm was undertaken, taking 5 mm margins around this lesion. Again, the margins appeared clear, except for some question of a new lesion at the 3 o'clock margin. A separate frozen section was taken from 11 o'clock to 4 o'clock. This returned free of tumor. Reconstruction began with the parietal scalp lesion. This was converted into a fusiform excision with triangular removal laterally. This was widely undermined and then closed on itself with interrupted 4-0 Vicryl deep dermal sutures and 35 wide gisela on skin. This was in his scalp, so Steri-Strip could not be used. No drain was needed. The final reconstruction was about 5 cm. Attention was then turned to the postauricular lesion. This as well was converted into a fusiform excision superiorly and inferiorly removing a triangle of skin. This was again widely undermined and the postauricular flap advanced. Once the flap was inset into position, it was sutured in place with interrupted 4-0 Vicryl sutures, 5-0 fast absorbing gut was used to close the postauricular. Mastisol and Steri-Strips were applied. Attention was then turned to the cheek defect. Due to the size of this, this precluded primary closure. For that reason, a myofascial flap was designed in a rhomboid fashion and drawn out and measured on the patient. This was then incised with a #15 blade, hemostasis with bipolar cautery. The cheek flap was widely undermined and the skin flap was rotated into the defect and then a lesion closed with interrupted 4-0 Vicryl deep dermal sutures and 5-0 nylon on [address] [address] OPERATIVE REPORT Name: JHONNY KOCH Room #: 150-5 [facility].#: [id number] Admission: 10/24/20 Attend Phys: Lobo Milian MD Discharge: Date of : 71 Report #: [id number] skin. Mastisol and Steri-Strips were applied for dressing. No drain was needed. After this entire reconstruction was completed, the patient was returned to anesthesia, awake without difficulty, returned to recovery in good condition. Sponge and needle counts were correct. There were no complications. Blood loss was about 25 mL. The patient will be watched in recovery until awake and stable, presuming he does well and discharged to home with plans to follow with me in 1 week for suture and staple removal. Written and verbal discharge instructions and emergency precautions have been given to his . DISCHARGE MEDICATIONS: Will include Keflex 500 mg q.i.d. for 10 days, Zofran ODT 4 mg 1 p.o. q. 4-6 hours p.r.n., hydrocodone/acetaminophen 7.5/325 one to two q. 4-6 hours p.r.n. He is instructed on light activity and a soft diet. The patient will be home for dialysis this evening. By: [id number] Lobo Milian MD /nt
--- NOTE | ~2020-10-24 | EKG ---
[address] [place] [address] ELECTROCARDIOGRAM REPORT Name: JHONNY KOCH Room #: 150-5 [facility].#: [id number] Admission: 10/24/20 Attend Phys: Lobo Milian MD Discharge: Date of : 71 Report #: [id number] [facility] Test Date: 2020-10-24 Test Time: 12:31:27 Pat Name: JHONNY KOCH Department: Room: 150 5 Gender: M Director Global: SHASHANK : 1975 Requested By: Lobo Milian Order Number: [id number] MD: Measurements Intervals Darby Rate: 62 P: 43 RI: 205 QRS: 20 QRSD: 110 T: 23 QT: 405 QTc: 412 Interpretive Statements Sinus rhythm Borderline prolonged RI interval ST elev, probable normal early repol pattern Baseline wander in lead(s) V1,V3 Compared to ECG 07/19/2019 09:33:03 ST (T wave) deviation now present [email or web address] By: 1231 1231 Epiphany EpiphanyMD /EPI
[~2020-10-24 11:49] MED LIST changes: -KEFLEX250 MG PO; -ZOFRAN ODT4 MG DISSOLVE
[2020-10-24 12:25] VITALS: BP 124/73
[2020-10-24 12:28] LABS: HEMATOCRIT 30.9 % (42.0-52.0); HEMOGLOBIN 10.4 gm/dL (14.0-18.0); MCHC 33.5 g/dL (28.0-37.0); MCV 98.5 fL (80.0-100.0); RBC 3.14 mil/uL (4.50-6.00); RDW 15.1 % (10.5-14.5); WBC 9.2 thou/uL (4.0-11.0)
[2020-10-24 12:37] LABS: CALCIUM 9.6 mg/dL (8.5-10.1); CREATININE 18.3 mg/dL (0.7-1.3)
[2020-10-24 12:43] LABS: ALBUMIN 3.2 g/dL (3.4-5.0); TOTAL BILIRUBIN 1.1 mg/dL (0.2-1.0); TOTAL PROTEIN 6.8 g/dL (6.4-8.2)
[2020-10-24] MEDS ORDERED: ZOFRAN ODT4 MG DISSOLVE (17:28)
[2020-10-24] MEDS ORDERED: NORCO 7.5-3251 EACH PO (17:28)
[2020-10-24] MEDS ORDERED: KEFLEX250 MG PO (17:28)
[2020-10-24 17:43] VITALS: BP 124/73
--- NOTE | 2020-10-27 18:06 | PATH ---
[facility] [place] [address] PATHOLOGY RPT PROCEDURE Name: JHONNY KOCH Room #: DEP [facility]..#: [id number] Admission: 10/24/20 Date of : 71 Discharge: 10/24/20 Report #: [id number] Path Case #: [id number] [facility] Accession Number: [id number] . 01 Material submitted: . PART A: cheek - RIGHT CHEEK LESION - STITCH AT 12:00 - FS. Modifiers: right PART B: auricular canal - RIGHT POSTERIOR AURICULAR LESION - FS. Modifiers: right, posterior PART C: scalp - RIGHT OCCIPITAL SCALP - STITCH AT 12:00 - FS. Modifiers: right, occipital PART D: auricular canal - DEEP MARGIN POSTERIOR AURICULAR - FS. Modifiers: posterior PART E: scalp - ADDITIONAL MARGIN RIGHT OCCIPITAL BASAL CELL CARCINOMA 11:00-4:00 - FS. Modifiers: right, occipital . 01 Clinical history: . SQUAMOUS CELL CANCER OF SKIN, RIGHT CHEEK, SCALP, NECK . 02 Frozen section diagnosis: . FROZEN SECTION DIAGNOSIS: (Shai Garza M.D.): . FSA1. Right cheek lesion: - [employer] section submitted for frozen section. - Side margins free of malignancy. . FSB1. Right posterior auricular lesion: - [employer] section submitted for frozen section. - Side margins free of malignancy. . FSC1. Right occipital scalp: - SUPERFICIAL BASAL CELL CARCINOMA AT APPROXIMATELY 3:00/12 TO 6:00 SIDE MARGIN. . FSD1. Deep margin right post-auricular: - Skeletal muscle and fibrovascular tissue. . FSE1. Additional margin right occipital 11 to 4:00: - Negative for malignancy. . These findings are discussed with Dr. Lobo Milian in OR1 at [facility] and a written report is placed in the patient's chart. . Frozen sections performed at [facility], [address] [place] [address] , [place] [address]. . . FROZEN SECTION GROSS DESCRIPTION: Specimen A is received fresh from the OR labeled with the patient's name, [facility] [place] [address] [address] PATHOLOGY RPT PROCEDURE Name: KOCHYUMIKOJHONNY Room #: DEP [facility] M..#: [id number] Admission: 10/24/20 Date of : 71 Discharge: 10/24/20 Report #: [id number] Path Case #: [id number] and "right cheek lesion suture at 12:00" consists of an oval resection specimen of skin with the suture designated 12:00. The specimen measures 3.0 x 2.5 x 0.5 cm. There is a raised lesion identified at the center of the specimen. The tips are grossly widely free from the lesion. The specimen at this point is inked as follows: 12 to 3 to 6:00 is inked black, 6 to 9:00 blue, and 9 to 12:00 green. [employer] sections of the lesion along with its side margins are submitted for frozen section as FSA1. This is subsequently submitted for permanent sections as A1. The unfrozen portion of the specimen is submitted entirely for permanent sections only as A2. . Specimen B is received fresh from the OR labeled with the patient's name, and "right post-auricular lesion suture at 12:00" consists of an oval excision of skin measuring 1.8 x 2.0 x 0.3 cm. There is a suture designated 12:00. A scaly lesion is identified at the center of the specimen. The specimen is inked black from 12 to 3 to 6:00, blue 6 to 9:00 and green 9 to 12:00. At this point the specimen is serially sectioned. [employer] sections of the lesion along with its side margins are submitted for frozen section as FSB1, subsequently submitted for permanent sections as B1. The unfrozen portion of this specimen is submitted for permanent sections only as B2. . Specimen C is received fresh from the OR labeled with the patient's name, and "right occipital scalp lesion" consists of an oval excision of skin measuring 2.1 x 2.5 x 0.5 cm. There is a suture designating 12:00. The specimen is inked black from 12 to 3 to 6:00, blue 6 to 9:00 and green 9 to 12:00. There is a lesion present at the center of the specimen. [employer] section of the lesion along with the side margins are submitted for frozen section as FSC1. This is subsequently submitted for permanent sections as C1. The unfrozen portion of the specimen is submitted for permanent sections only as C2. . Specimen D is received fresh from the OR labeled with the patient's name, and "deep margin post-auricular" consists of a 1.5 x 1.0 x 0.2 cm [place] soft tissue fragment. This is submitted entirely for frozen section as FSD1. This is subsequently submitted for permanent sections as D1. . Specimen E is received fresh from the OR labeled with the patient's name, and "additional margin right occipital basal cell carcinoma 11 to 4:00" consists of a triangular specimen measuring approximately 1 x 1 x 1 cm. The base of the triangle represents the 11 to 4:00 margin of the specimen. At this point the specimen is sectioned into three pieces and submitted entirely for frozen section as FSE1. This is subsequently submitted for permanent sections as E1. (IUV/db; 10/24/2020) IZV/LBQ . 02 [facility] [address] [place] [address] PATHOLOGY RPT PROCEDURE Name: JHONNY KOCH Room #: DEP [facility]..#: [id number] Admission: 10/24/20 Date of : 71 Discharge: 10/24/20 Report #: [id number] Path Case #: [id number] Diagnosis: A. Skin, right cheek lesion, excision: - INVASIVE SQUAMOUS CELL CARCINOMA. - FOCAL PERINEURAL INVASION IDENTIFIED. - Margins of resection free of malignancy. . B. Skin, right post-auricular lesion, excision: - BASAL CELL CARCINOMA. - Margins of resection free of malignancy. . C. Skin, right occipital scalp, stitch at 12:00, excision: - FOCAL RESIDUAL BASAL CELL CARCINOMA PRESENT. - FOCAL SUPERFICIAL BASAL CELL CARCINOMA (WITHOUT INVASION) PRESENT AT APPROXIMATELY 3:00 SIDE MARGIN. - Margins of resection widely free of invasive carcinoma. . D. Fibrovascular connective tissue and skeletal muscle, deep margin right post-auricular, biopsy: - Negative for malignancy. . E. Skin, additional margin right occipital basal cell carcinoma 11 to 4:00, re-excision: - Reactive changes. - Negative for malignancy. (IUV/db; 10/27/2020) LBQ 10/27/2020 1551 Local . 02 Electronically signed: . Balbina Garza MD, Pathologist NPI- [id number] . 01 Gross description: . SEE FROZEN SECTION GROSS DESCRIPTION. /LBQ 10/27/2020 1008 Local . 02 Pathologist provided ICD-10: C44.329, C44.212, C44.41 . 02 CPT . 570586, 413417, 990583, 578195, 514547, 845501, 600352, 526714, 164625, 701600 Specimen Comment: A courtesy copy of this report has been sent to [phone] Specimen Comment: Report sent to Performed at: [address] [facility], [place], [place] [id number] MD Ayaan Sanchez MD Phone: [phone] [place] [address] PATHOLOGY RPT PROCEDURE Name: JHONNY KOCH Room #: DEP [facility] Tex#: [id number] Admission: 10/24/20 Date of : 71 Discharge: 10/24/20 Report #: [id number] Path Case #: [id number] Performed at: 02 [facility] [address] [facility], [place], [place] [id number] MD Balbina Garza MD Phone: [phone]
== END 2020-10-24 17:43 | disposition home or self-care (01) ==
LOC: OR 11:49 → TBA 11:49 → OR 13:55
PROVIDERS: ATTEND Otolaryngology Plastic Surgery within the Head & Neck
DX: C44.329 Squamous cell carcinoma of skin of other parts of face (principal); C44.212 Basal cell carcinoma of skin of right ear and external auricular canal; C44.41 Basal cell carcinoma of skin of scalp and neck; I10 Essential (primary) hypertension; F32.9 Major depressive disorder, single episode, unspecified; F17.210 Nicotine dependence, cigarettes, uncomplicated; Z98.890 Other specified postprocedural states; Z79.899 Other long term (current) drug therapy
CPT/HCPCS: 50010; 50101; 50386; 50398; 51412; 52220; 56526; 56528; 56760; 57006; 62110; 62900; 70005